=== PATIENT | female | born 1995 | race African-American/Black ===

== ENCOUNTER 2020-01-24 22:43 | Emergency (ER) | payer OTHER ==
[2020-01-24 22:54] VITALS: BP 115/51; PULSE 98; BMI 53.3
[2020-01-24] MEDS ORDERED: SODIUM CHLORIDE 1,000 ML IV STA (23:12)
== END 2020-01-25 01:12 | disposition home or self-care (01) ==
LOC: JER 22:43
PROC: 3E0337Z Introduction of Electrolytic and Water Balance Substance into Peripheral Vein, Percutaneous Approach (ICD-10-PCS; principal; 2020-01-24)
DX: O26.899 Other specified pregnancy related conditions, unspecified trimester (principal); K52.9 Noninfective gastroenteritis and colitis, unspecified; R19.7 Diarrhea, unspecified
CPT/HCPCS: 99284-25